=== PATIENT | female | born 1985 | race Caucasian/White ===

== ENCOUNTER 2020-09-09 19:18 | Inpatient (IN) ==
[2020-09-09] MEDS ORDERED: NS 0.9% 1000 ml BAG 2,000 ML IV ONE (20:02)
[2020-09-09] MEDS ORDERED: NS 0.9% 1000 ml BAG 1,000 ML IV ONE (20:02)
[2020-09-09] MEDS ORDERED: cefTRIAXone 1 gm/50 mL NS BAG 1 GM/50 ML BAG IV ONE (20:11)
[2020-09-09 21:01] LABS: Hematocrit 40 % (35-47); Hemoglobin 15.9 g/dL (12.0-16.0); Mean Corpuscular HGB Conc 40 g/dL (31-36); Mean Corpuscular Hemoglobin 33 pg (27-31); Mean Corpuscular Volume 82 fL (80-97); Platelet Count 492 10^3/uL (150-450); Red Cell Distribution Width 15 % (10-15); White Blood Count 11.7 10^3/uL (3.5-10.8)
[2020-09-09 22:00] LABS: Urine Appearance Clear; Urine Bilirubin Negative (Negative); Urine Blood 1+ (Negative); Urine Color Straw; Urine Glucose 3+(>=500 mg/dL) (Negative); Urine Ketones Negative (Negative); Urine Nitrite Negative (Negative); Urine Protein 2+(100 mg/dL) (Negative); Urine Specific Gravity 1.029 (1.010-1.030); Urine Urobilinogen Negative (Negative)
[2020-09-09 22:42] LABS: ALT 19 U/L (7-52); AST 51 U/L (13-39); Albumin 3.5 g/dL (3.2-5.2); Albumin/Globulin Ratio 1.3 (1-3); Alkaline Phosphatase 43 U/L (34-104); BUN/Creatinine Ratio 9.8 (8-20); Blood Urea Nitrogen 6 mg/dL (6-24); C Reactive Protein 35.08 mg/L (<8.01); Calcium 8.4 mg/dL (8.6-10.3); EGFR African American 133.5 (>60); EGFR Non-African American 110.4 (>60); Globulin 2.8 g/dL (2-4); Glucose 254 mg/dL (70-100); Lipase 133 U/L (11.0-82.0); Total Protein 6.3 g/dL (6.4-8.9)
[2020-09-09 22:43] LABS: ABS Basophils 0.2 10^3/ul (0-0.2); ABS Eosinophils 0.8 10^3/ul (0-0.6); ABS Lymphocytes 1.9 10^3/ul (1.0-4.8); ABS Monocytes 1.9 10^3/ul (0-0.8); Eosinophil % 6.5 %; Lymphocyte % 16.1 %
[2020-09-09 22:43] LABS: HCG Pregnancy < 0.60 mIU/mL; Urine Bacteria Absent (Absent); Urine Red Blood Cell Trace(0-2/hpf) (Absent); Urine Squamous Epithelial Cell Present (Absent); Urine White Blood Cell Trace(0-5/hpf) (Absent)
[2020-09-09] MEDS ORDERED: Morphine 4 MG/ML VIAL (1 ml) IV ONE (22:50)
[2020-09-09 23:24] LABS: Potassium, Whole Blood 4.6 mmol/L (3.4-4.5)
[2020-09-10] MEDS ORDERED: Ondansetron 4 mg VIAL 2 MG/ML 2 ml VIAL IV PRN (00:19)
[2020-09-10] MEDS ORDERED: NS 0.9% 1000 ml BAG 1,000 ML IV SCH (00:30)
[2020-09-10] MEDS ORDERED: Dextrose 50% Syringe 50 ml 25 GM/50 ML SYRINGE IV PUSH PRN (00:47)
[2020-09-10 00:54] LABS: Triglycerides 6731 mg/dL
[2020-09-10] MEDS: Enoxaparin 40 MG/0.4 ML SYR SUBCUT SCH (04:01)
[2020-09-10 07:18] LABS: HDL Cholesterol 20.9 mg/dL
[2020-09-10] MEDS: Mometasone/Formoter 200/5 MDI INH SCH ×2 (08:36→20:46)
[2020-09-10] MEDS ORDERED: Insulin Infusion 100unit/100mL 100 UNIT/100 ML BAG IV SCH (12:00)
[2020-09-10] MEDS ORDERED: D5LR 1000 ml BAG 1,000 ML IV SCH ×2 (12:00→15:32)
[2020-09-10 12:46] LABS: Hematocrit 35 % (35-47); Hemoglobin 12.7 g/dL (12.0-16.0); Mean Corpuscular HGB Conc 36 g/dL (31-36); Mean Corpuscular Hemoglobin 30 pg (27-31); Mean Corpuscular Volume 82 fL (80-97); Mean Platelet Volume 6.9 fL (7.4-10.4); Platelet Count 359 10^3/uL (150-450); Red Blood Count 4.29 10^6 /uL (3.70-4.87); Red Cell Distribution Width 15 % (10-15); White Blood Count 11.6 10^3/uL (3.5-10.8)
[2020-09-10 13:08] LABS: BUN/Creatinine Ratio 10.2 (8-20); Blood Urea Nitrogen 5 mg/dL (6-24); Calcium 7.4 mg/dL (8.6-10.3); EGFR African American 171.9 (>60); EGFR Non-African American 142.1 (>60); Glucose 131 mg/dL (70-100)
[2020-09-10 13:09] LABS: Phosphorus 3.5 mg/dL (2.5-5.0)
[2020-09-10 13:12] LABS: Chloride 96 mmol/L (101-111); Sodium 121 mmol/L (135-145)
[2020-09-10 13:20] LABS: Anion Gap 15 mmol/L (2-11)
[2020-09-10 13:21] LABS: CO2 Carbon Dioxide 10 mmol/L (22-32)
[2020-09-10 13:34] LABS: ABS Basophils 0.2 10^3/ul (0-0.2); ABS Eosinophils 0.5 10^3/ul (0-0.6); ABS Lymphocytes 2.3 10^3/ul (1.0-4.8); ABS Monocytes 0.7 10^3/ul (0-0.8); Eosinophil % 4.4 %; Lymphocyte % 19.6 %
[2020-09-10 15:41] LABS: Potassium, Whole Blood 5.5 mmol/L (3.4-4.5)
[2020-09-10] MEDS ORDERED: D10W 1000 ml BAG 1,000 ML IV SCH (18:00)
[2020-09-10] MEDS: D10W 500 ml BAG 500 ML IV SCH (18:04)
[2020-09-10 20:01] LABS: Potassium, Whole Blood 5.4 mmol/L (3.4-4.5)
[2020-09-10 20:30] LABS: Magnesium 1.6 mg/dL (1.9-2.7)
[2020-09-10] MEDS ORDERED: Magnesium Sulfate IV 3 GM in NS 0.9% 100 ml BAG 100 ML IVPB ONE (20:33)
[2020-09-10] MEDS: D5NS 0.9% 1000 ml BAG 1,000 ML IV SCH (20:54)
[2020-09-11 00:29] LABS: Blood Urea Nitrogen 3 mg/dL (6-24); CO2 Carbon Dioxide 16 mmol/L (22-32); Calcium 7.5 mg/dL (8.6-10.3); Chloride 96 mmol/L (101-111); EGFR Non-African American 138.8 (>60); Glucose 142 mg/dL (70-100); Lipase 77 U/L (11.0-82.0); Sodium 123 mmol/L (135-145)
[2020-09-11] MEDS ORDERED: Patiromer POWDER 8.4 GM PAK PO ONE (02:02)
[2020-09-11] MEDS ORDERED: Insulin Infusion 100unit/100mL 100 UNIT/100 ML BAG IV SCH ×2 (02:27→05:45)
[2020-09-11] MEDS: D5NS 0.9% 1000 ml BAG 1,000 ML IV SCH ×2 (02:58→09:55)
[2020-09-11 04:25] LABS: Potassium, Whole Blood 5.1 mmol/L (3.4-4.5)
[2020-09-11 04:27] LABS: ABS Basophils 0.1 10^3/ul (0-0.2); ABS Eosinophils 0.5 10^3/ul (0-0.6); ABS Lymphocytes 1.5 10^3/ul (1.0-4.8); ABS Monocytes 0.7 10^3/ul (0-0.8); Hematocrit 33 % (35-47); Hemoglobin 11.2 g/dL (12.0-16.0); Lymphocyte % 13.1 %; Mean Corpuscular HGB Conc 34 g/dL (31-36); Mean Corpuscular Hemoglobin 28 pg (27-31); Mean Corpuscular Volume 82 fL (80-97); Mean Platelet Volume 7.1 fL (7.4-10.4); Nucleated Red Blood Cells % 0.1; Platelet Count 320 10^3/uL (150-450); Red Blood Count 4.01 10^6 /uL (3.70-4.87); Red Cell Distribution Width 15 % (10-15); White Blood Count 11.8 10^3/uL (3.5-10.8)
[2020-09-11 05:02] LABS: ALT 26 U/L (7-52); AST 60 U/L (13-39); Albumin 2.8 g/dL (3.2-5.2); Albumin/Globulin Ratio 0.9 (1-3); Alkaline Phosphatase 36 U/L (34-104); BUN/Creatinine Ratio 5.3 (8-20); Blood Urea Nitrogen 3 mg/dL (6-24); CO2 Carbon Dioxide 19 mmol/L (22-32); Calcium 7.5 mg/dL (8.6-10.3); Chloride 98 mmol/L (101-111); EGFR African American 144.4 (>60); EGFR Non-African American 119.3 (>60); Globulin 3.1 g/dL (2-4); Glucose 173 mg/dL (70-100); Sodium 124 mmol/L (135-145); Total Protein 5.9 g/dL (6.4-8.9)
[2020-09-11] MEDS: Enoxaparin 40 MG/0.4 ML SYR SUBCUT SCH (05:16)
[2020-09-11 06:23] LABS: Triglycerides 2181 mg/dL
[2020-09-11] MEDS: Mometasone/Formoter 200/5 MDI INH SCH ×2 (07:57→19:57)
[2020-09-11 09:33] LABS: BUN/Creatinine Ratio 3.9 (8-20); Calcium 7.8 mg/dL (8.6-10.3); EGFR African American 164.2 (>60); EGFR Non-African American 135.7 (>60); Potassium 3.3 mmol/L (3.5-5.0)
[2020-09-11] MEDS: Potassium Chlor 20 meq TAB.ER PO ONE ×5 (09:55→20:42)
[2020-09-11] MEDS: Polyethylene Glycol 3350 17 GM PACKET PO SCH (09:55)
[2020-09-11] MEDS: D10W 500 ml BAG 500 ML IV SCH (10:53)
[2020-09-11] MEDS: KCL 20 MEQ/100 ML IVPREMIX 20 MEQ/100 ML BAG IV SCH ×2 (10:58→13:29)
[2020-09-11] MEDS ORDERED: D10W 1000 ml BAG 1,000 ML IV SCH ×2 (11:00→16:22)
[2020-09-11] MEDS ORDERED: Benzocaine/Menthol LOZ MT PRN (12:11)
[2020-09-11 13:38] LABS: BUN/Creatinine Ratio 5.9 (8-20); Calcium 7.9 mg/dL (8.6-10.3); EGFR African American 164.2 (>60); EGFR Non-African American 135.7 (>60); Magnesium 1.6 mg/dL (1.9-2.7); Phosphorus 2.6 mg/dL (2.5-5.0); Potassium 3.7 mmol/L (3.5-5.0)
[2020-09-11] MEDS ORDERED: Magnesium Sulf 4 GM/100 ML IV 4,000 MG/100 ML BAG IVPB ONE (16:03)
[2020-09-11] MEDS: CMCS - OMEGA-3 FATTY ACID 1000 mg(NF) PO SCH (19:10)
[2020-09-11 19:42] LABS: Calcium 6.5 mg/dL (8.6-10.3)
[2020-09-11 19:48] LABS: BUN/Creatinine Ratio 4.7 (8-20); EGFR African American 199.9 (>60); EGFR Non-African American 165.2 (>60)
[2020-09-11] MEDS ORDERED: Potassium Chloride LIQUID 20 MEQ/15 ML LIQUID PO ONE ×2 (20:45→22:00)
[2020-09-11] MEDS ORDERED: D5LR 1000 ml BAG 1,000 ML IV SCH (23:00)
[2020-09-12 00:03] LABS: Potassium 4.7 mmol/L (3.5-5.0)
[2020-09-12 00:08] LABS: BUN/Creatinine Ratio 3.8 (8-20); EGFR African American 160.6 (>60); EGFR Non-African American 132.7 (>60)
[2020-09-12 05:13] LABS: Magnesium 2.2 mg/dL (1.9-2.7)
[2020-09-12 05:15] LABS: Potassium 4.5 mmol/L (3.5-5.0)
[2020-09-12 05:19] LABS: BUN/Creatinine Ratio 5.5 (8-20); EGFR African American 150.5 (>60); EGFR Non-African American 124.4 (>60)
[2020-09-12 05:21] LABS: ABS Basophils 0.1 10^3/ul (0-0.2); ABS Eosinophils 0.7 10^3/ul (0-0.6); ABS Lymphocytes 2.1 10^3/ul (1.0-4.8); ABS Monocytes 0.7 10^3/ul (0-0.8); ABS Neutrophils 11.8 10^3/ul (1.5-7.7); Eosinophil % 4.5 %; Lymphocyte % 13.4 %
[2020-09-12 05:22] LABS: Hematocrit 32 % (35-47); Hemoglobin 10.6 g/dL (12.0-16.0); Mean Corpuscular HGB Conc 33 g/dL (31-36); Mean Corpuscular Hemoglobin 28 pg (27-31); Mean Corpuscular Volume 84 fL (80-97); Red Cell Distribution Width 15 % (10-15); White Blood Count 15.5 10^3/uL (3.5-10.8)
[2020-09-12] MEDS: Enoxaparin 40 MG/0.4 ML SYR SUBCUT SCH (05:27)
[2020-09-12 06:08] LABS: Large Platelets Present; Platelet Count 322 10^3/uL (150-450)
[2020-09-12] MEDS: Mometasone/Formoter 200/5 MDI INH SCH ×2 (07:40→21:07)
[2020-09-12] MEDS: Polyethylene Glycol 3350 17 GM PACKET PO SCH (08:06)
[2020-09-12] MEDS: CMCS - OMEGA-3 FATTY ACID 1000 mg(NF) PO SCH ×2 (08:06→20:55)
[2020-09-12 10:39] LABS: BUN/Creatinine Ratio 5.5 (8-20); Calcium 8.2 mg/dL (8.6-10.3); EGFR African American 150.5 (>60); EGFR Non-African American 124.4 (>60)
[2020-09-12] MEDS ORDERED: D5LR 1000 ml BAG 1,000 ML IV SCH (12:42)
[2020-09-12 15:05] LABS: BUN/Creatinine Ratio 8.2 (8-20); Calcium 8.2 mg/dL (8.6-10.3); EGFR African American 171.9 (>60); EGFR Non-African American 142.1 (>60); Potassium 3.8 mmol/L (3.5-5.0)
[2020-09-12] MEDS: cefTRIAXone 1 gm/50 mL NS BAG 1 GM/50 ML BAG IVPB SCH (15:56)
[2020-09-12 23:03] LABS: Urine Appearance Clear; Urine Bilirubin Negative (Negative); Urine Blood Negative (Negative); Urine Color Yellow; Urine Glucose 1+(50 mg/dL) (Negative); Urine Ketones Negative (Negative); Urine Nitrite Negative (Negative); Urine Protein Negative (Negative); Urine Specific Gravity 1.009 (1.010-1.030); Urine Urobilinogen Negative (Negative)
[2020-09-13] MEDS: cefTRIAXone 1 gm/50 mL NS BAG 1 GM/50 ML BAG IVPB SCH ×2 (04:00→16:59)
[2020-09-13] MEDS: Enoxaparin 40 MG/0.4 ML SYR SUBCUT SCH (04:45)
[2020-09-13 06:54] LABS: ABS Basophils 0.1 10^3/ul (0-0.2); ABS Eosinophils 0.5 10^3/ul (0-0.6); ABS Lymphocytes 1.8 10^3/ul (1.0-4.8); ABS Monocytes 0.5 10^3/ul (0-0.8); ABS Neutrophils 5.9 10^3/ul (1.5-7.7); Eosinophil % 5.3 %; Hematocrit 33 % (35-47); Hemoglobin 10.8 g/dL (12.0-16.0); Lymphocyte % 20.5 %; Mean Corpuscular HGB Conc 33 g/dL (31-36); Mean Corpuscular Hemoglobin 28 pg (27-31); Mean Corpuscular Volume 85 fL (80-97); Mean Platelet Volume 7.4 fL (7.4-10.4); Platelet Count 336 10^3/uL (150-450); Red Cell Distribution Width 15 % (10-15); White Blood Count 8.8 10^3/uL (3.5-10.8)
[2020-09-13 07:10] LABS: BUN/Creatinine Ratio 12.8 (8-20); Calcium 8.5 mg/dL (8.6-10.3); EGFR African American 180.4 (>60); EGFR Non-African American 149.1 (>60); Magnesium 1.5 mg/dL (1.9-2.7); Potassium 3.8 mmol/L (3.5-5.0)
[2020-09-13] MEDS: CMCS - OMEGA-3 FATTY ACID 1000 mg(NF) PO SCH ×2 (08:28→20:51)
[2020-09-13] MEDS ORDERED: Magnesium Sulf 4 GM/100 ML IV 4,000 MG/100 ML BAG IVPB ONE (09:51)
[2020-09-13] MEDS ORDERED: Dextrose 50% Syringe 50 ml 25 GM/50 ML SYRINGE IV PUSH PRN (09:55)
[2020-09-13] MEDS: Mometasone/Formoter 200/5 MDI INH SCH ×2 (10:29→21:24)
[2020-09-14] MEDS: cefTRIAXone 1 gm/50 mL NS BAG 1 GM/50 ML BAG IVPB SCH (02:45)
[2020-09-14] MEDS: Enoxaparin 40 MG/0.4 ML SYR SUBCUT SCH (04:29)
[2020-09-14 08:34] LABS: BUN/Creatinine Ratio 11.1 (8-20); Calcium 8.9 mg/dL (8.6-10.3); EGFR African American 153.7 (>60); Magnesium 1.6 mg/dL (1.9-2.7); Potassium 3.5 mmol/L (3.5-5.0)
[2020-09-14] MEDS ORDERED: Magnesium Sulf 4 GM/100 ML IV 4,000 MG/100 ML BAG IVPB ONE (09:38)
[2020-09-14] MEDS: CMCS - OMEGA-3 FATTY ACID 1000 mg(NF) PO SCH (09:42)
[2020-09-14] MEDS: Mometasone/Formoter 200/5 MDI INH SCH (10:43)
[2020-09-14 13:25] VITALS: BP 145/94
== END 2020-09-14 17:00 | disposition home or self-care (01) | DRG 720 ==
LOC: EDSEX → ED 19:18 → MED 09-10 00:19 → ICU 09-10 13:57 → MED 09-12 16:38
PROVIDERS: ADMIT Internal Medicine; ATTEND Internal Medicine